=== PATIENT | female | born 1970 | race Two or more races ===

== ENCOUNTER 2019-05-13 13:02 | Emergency (ER) | payer OTHER ==
[~2019-05-13] VITALS: Ht 162.6 cm; Wt 69.9 kg
[2019-05-13] MEDS ORDERED: LEVO-T200 MCG PO (13:36)
[2019-05-13] MEDS ORDERED: MESTINON60 MG PO (13:36)
== END 2019-05-14 12:03 | disposition home or self-care (01) ==
LOC: ER 13:02
DX: A08.8 Other specified intestinal infections (principal); N20.0 Calculus of kidney